=== PATIENT | male | born 1995 | race African-American/Black ===

== ENCOUNTER → 2023-05-03 | Day surgery (SDC) | payer OTHER | END | disposition home or self-care (01) | LOC: JRADIR 10:48 | PROVIDERS: ATTEND Orthopaedic Surgery | PROC: BP39YZZ Magnetic Resonance Imaging (MRI) of Left Shoulder using Other Contrast (ICD-10-PCS; principal; 2023-05-03) | DX: M25.512 Pain in left shoulder (principal) | CPT/HCPCS: 23350; 73040-TC-FY; 73222-TC ==